=== PATIENT | male | born 1980 | race Two or more races ===

== ENCOUNTER 2022-09-01 17:43 | Emergency (ER) | payer OTHER ==
[~2022-09-01] VITALS: Ht 177.8 cm; Wt 97.5 kg
[2022-09-01] MEDS ORDERED: LOSARTAN POTASS25 MG (18:04)
[2022-09-01] MEDS ORDERED: MELOXICAM15 MG PO (18:41)
[2022-09-01] MEDS ORDERED: CLEOCIN HCL300 MG PO (18:41)
== END 2022-09-01 19:15 | disposition home or self-care (01) ==
LOC: ER 17:43
DX: L02.212 Cutaneous abscess of back [any part, except buttock and flank] (principal)